=== PATIENT | male | born 2000 | race African-American/Black ===

== ENCOUNTER 2021-03-11 06:50 | Emergency (ER) | payer SELFPAY ==
[2021-03-11 07:02] VITALS: BP 142/87; PULSE 107; RESP 18; TEMP 37.4; O2SAT 98; BMI 40.6
--- NOTE | 2021-03-11 07:12 | W.ED.EAR ---
HPI - Ear Problem General: Chief complaint: Ear Stated complaint: ear pain Time Seen by Provider: 03/11/21 07:01 History of Present Illness: HPI Narrative: Patient complains about left ear pain after scratching it yesterday and woke up and it was hurting this morning. Also states he has had a head cold last few days has sinus pressure and throat drainage. Denies any fever chills muscle aches or cough. MD Complaint: ear pain Location: left ear Duration: constant Severity: mild Relieving factors: nothing Exacerbating factors: nothing Associated symptoms: Reports ear or mastoid pain and other (Sinus drainage); Denies fever(s) or headache(s) Treatment prior to arrival: attempt at ear wax removal Review of Systems Const: Denies: fever(s), chills or body aches Eyes: Denies: change in vision or blurry vision ENMT: Reports: ear or mastoid pain and nasal congestion; Denies: throat pain Card: Denies: chest pain or dyspnea on exertion Resp: Denies: dyspnea, productive cough or non-productive cough GI: Denies: abdominal pain, nausea or vomiting : Denies: difficulty urinating Musc: Denies: extremity pain Skin/Breast: Denies: rash Neuro: Denies: headache(s) Psych: Denies: anxiety or depression Nestor/Lymph: Denies: easy bruising Physical Exam Const: COMMON NORMALS: no acute distress, average body habitus and patient oriented x3 HENMT: COMMON NORMALS: normocephalic HEAD & SCALP: normal to inspection and normocephalic FACE & SINUS: normal facial exam and sinus tenderness NOSE: Nasal discharge present clear EXTERNAL AUDITORY CANAL: Abnormal EAC present EAC laterality: left Details: erythema, edema and EAC tenderness MOUTH: Normal oral and palatal mucosa present THROAT: posterior oropharynx normal Eye: COMMON NORMALS: conjunctivae normal GENERAL EYE: appearance normal, both eyes and all related structures CONJUNCTIVA: Yes conjunctivae normal Neck/C-Spine: COMMON NORMALS: no JVD Lymph: LYMPHATIC: no lymphadenopathy noted Chest: COMMONS NORMALS: normal inspection of the chest Resp: COMMON NORMALS: normal respiratory effort and clear to auscultation bilaterally AUSCULTATION: clear to auscultation bilaterally Cardio: COMMON NORMALS: no JVD, regular rate and regular rhythm RATE: regular rate RHYTHM: regular rhythm GI: COMMON NORMALS: Normal to inspection, nondistended, normoactive bowel sounds present Extremity: COMMON NORMALS: normal to inspection and full ROM Neuro: COMMON NORMALS: patient oriented x3 Course Vital Signs: Vital signs: Vital Signs Temperature 99.4 F 03/11/21 07:02 Pulse Rate 107 H 03/11/21 07:02 Respiratory Rate 18 03/11/21 07:02 Blood Pressure 142/87 03/11/21 07:02 Pulse Oximetry 98 03/11/21 07:02 Discharge Plan Discharge Patient Disposition: Home Clinical Impression: Otitis externa Qualifiers: Otitis externa type: other infective Chronicity: acute Laterality: left Qualified Code(s): H60.392 - Other infective otitis externa, left ear URI (upper respiratory infection) Qualifiers: URI type: unspecified viral URI Qualified Code(s): J06.9 - Acute upper respiratory infection, unspecified Condition: Stable Prescriptions: New cephalexin 500 mg capsule 500 mg PO Q8H 7 Days Qty: 21 RF: 0 [id number] 3.5-10,000-1 mg/mL-unit/mL-% solution 4 drp otic (ear) Q8H 7 Days Qty: 10 RF: 0 Discharge Orders: Discharge ED (Routine); Ordered 03/11/21 Ordered By: Jeremías Akhtar Discharge Diet: Usual diet Discharge Activity: Increase activity as tolerated Patient Instructions: Otitis Externa - Adult, Upper Respiratory Infection (ED) Activity Restrictions/Additional Instructions: Follow-up with medical provider as directed. Take medications as prescribed. Return to the ER or your medical provider if condition worsens. Please read and understand discharge instructions. If any questions ask please. Coding Level of Care Code ED Produce Team Member for Donal Jennings
== END 2021-03-11 07:26 | disposition home or self-care (01) ==
PROVIDERS: Emergency Provider Nurse Practitioner Family
DX: H60.392 Other infective otitis externa, left ear (principal); J06.9 Acute upper respiratory infection, unspecified
CPT/HCPCS: 99282

== ENCOUNTER 2021-04-09 12:57 | Emergency (ER) | payer SELFPAY ==
--- NOTE | 2021-04-09 13:00 | XR_ITS ---
WS: [id number] XR chest 1V portable [id number] REASON FOR EXAM: cough FINDINGS: The chest is unchanged compared to 02/13/2019. The heart and mediastinum are within normal limits. Calcified granulomatous changes in both hemithoraces. No acute pulmonary parenchymal or pleural abnormality. The bony thorax is intact. XR/XR chest 1V portable [id number] IMPRESSION: No acute chest abnormality.
[2021-04-09 13:08] VITALS: BP 128/71; PULSE 100; RESP 16; TEMP 37.2; O2SAT 98; BMI 42.8
== END 2021-04-09 14:55 ==
LOC: ER 13:03
PROVIDERS: Emergency Provider Family Medicine
DX: Z53.21 Procedure and treatment not carried out due to patient leaving prior to being seen by health care provider (principal)
CPT/HCPCS: 71045